=== PATIENT | female | born 2000 | race Caucasian/White ===

== ENCOUNTER 2023-11-19 13:17 | Outpatient (CLI) | payer OTHER, SELFPAY ==
[2023-11-19 14:14] LABS: Basophils Absolute Auto 0.1 K/mm3 (0.0-0.1); Eosinophils Absolute Auto 0.3 K/mm3 (0-0.3); Eosinophils Percent Auto 4.2 % (0-4.4); Hematocrit 42.6 % (37.0-47.0); Hemoglobin 13.7 g/dL (12.0-15.0); Immature Granulocyte Absolute 0.03 K/mm3 (0.00-0.031); Immature Granulocyte Percent A 0.4 % (0-0.5); Immature Reticulocyte Fraction 8.6 % (3.0-15.9); Lymphocytes Absolute Auto 1.82 K/mm3 (0.9-3.2); Mean Corpuscular HGB Conc 32.2 g/dl (32-36); Mean Corpuscular Hemoglobin 28.9 pg (26-34); Mean Corpuscular Volume 89.9 fl (80-100); Mean Platelet Volume 10.3 fl (7.4-10.4); Monocytes Absolute Auto 0.8 K/mm3 (0.1-0.6); Monocytes Percent Auto 11.1 % (2.6-8.5); Neutrophils Absolute Auto 3.8 K/mm3 (1.3-6.7); Neutrophils Percent Auto 56.3 % (45.5-73.1); Platelet Count Result 294 k/mm3 (150-375); Red Blood Count 4.74 M/mm3 (4.2-5.4); Red Cell Distribution Width 13.4 % (11.5-14.5); Reticulocyte Hemoglobin Conten 31.5 pg (28.2-36.6); Reticulocyte Percent 1.44 % (0.7-4.3); Reticulocytes Absolute 0.07 10^6/uL (0.02-0.10); White Blood Count 6.7 K/mm3 (4.5-10.0)
[2023-11-19 14:21] LABS: Iron 76 ug/dL (37-170)
[2023-11-19 14:22] LABS: Alanine Aminotransferase 13 U/L (6-35); Albumin Level 4.3 g/dL (3.5-5.1); Alkaline Phosphatase 80 U/L (38-126); Anion Gap 8 mmol/L (4-12); Aspartate Amino Transferase 33 U/L (14-36); Bilirubin,Total 0.2 mg/dL (0.2-1.3); Blood Urea Nitrogen 11 mg/dL (7-17); Calcium 9.4 mg/dL (8.4-10.2); Carbon Dioxide 29 mmol/L (22-30); Chloride 104 mmol/L (98-107); Estimated Glomerular Filt Rate > 60; Glucose 83 mg/dL (65-110); Potassium 3.9 mmol/L (3.4-5.0); Sodium 141 mmol/L (137-145)
[2023-11-19 14:30] LABS: Percent Iron Saturation 27 % (20-50)
== END 2023-11-19 13:18 | disposition home or self-care (01) ==
LOC: ANHGOSHLAB 13:22
DX: R53.83 Other fatigue (principal)
CPT/HCPCS: 36415; 80053; 82728; 83540; 83550; 85025; 85046

== ENCOUNTER 2024-07-19 19:37 | Emergency (ER) | payer OTHER, SELFPAY ==
--- NOTE | 2024-07-19 19:42 | ECG_ITS ---
Test Date: 2024-07-19 19:49:51 Measurements Intervals [place] Rate: 76 P: 19 ME: 159 QRS: 66 QRSD: 74 T: 12 QT: 355 QTc: 401 Interpretive Statements SINUS RHYTHM SEPTAL MYOCARDIAL INFARCTION [40+ ms Q WAVE IN V1/V2], PROBABLY OLD No previous ECG available for comparison Electronically Signed On 07-20-2024 15:18:38 CDT by Frederick Rivero M.D.
--- NOTE | 2024-07-19 19:47 | ED_ITS ---
HPI - Chest Pain General Chief Complaint: Chest Pain Stated Complaint: CHEST PAIN Time Seen by Provider: 07/19/24 19:47 Source: patient and RN notes reviewed Mode of arrival: ambulatory Limitations: no limitations History of Present Illness HPI narrative: 23-year-old female presents Express Care complaining of chest pain. Patient said it started approximate couple hours ago while at work. Patient has noticed she has developed sharp and stabbing pain that was midsternal and nonradiating. Patient also reports feeling dizzy during the episodes. Patient stated the pain would come and go and last about 2-3 minutes at a time. Patient denies any shortness of breath, jaw pain, syncope, nausea, vomiting, diaphoresis, leg swelling, or left arm pain. 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 Patient denies any family history of heart disease but states she has had family members of heart failure. Patient does not smoke. Patient has no cardiac history. Related Data Home Medications ?Medication ?Instructions ?Recorded ?Confirmed ?Last Taken ?Type aripiprazole 5 mg tablet mg 07/19/24 Unknown History metoprolol succinate 25 mg mg PO 07/19/24 Unknown History tablet,extended release 24 hr venlafaxine 150 mg mg PO 07/19/24 Unknown History capsule,extended release 24 hr Review of Systems Review of Systems: CONSTITUTIONAL: Denies fever, chills, or sweats. EYES: Denies visual changes, redness, or discharge. ENT: Denies rhinorrhea, congestion, sore throat, or otalgia. CARDIOVASCULAR: Positive for chest pain and dizziness. Negative for palpitations, chest pain with exertion, syncope, or edema. RESPIRATORY: Denies cough or dyspnea. GASTROINTESTINAL: Denies abdominal pain, nausea, vomiting, or diarrhea. GENITOURINARY: Denies dysuria or hematuria. SKIN: Denies rash or itching. MUSCULOSKELETAL: Denies back pain, joint pain, or myalgia. NEUROLOGIC: Denies headache, numbness, or weakness. PSYCHIATRIC: Denies anxiety or depression. All other systems reviewed are negative, except as documented in HPI. PMFSH Comments At the time of my signature, I reviewed and agree with the nursing past medical, surgical, social, and family history. There is no relevant family history pertinent to the patient complaint. Exam Narrative: GENERAL: This is a well-nourished, well-developed adult, in no apparent distress. They are non ill-appearing, nontoxic appearing. Flat affect. HEAD: normocephalic, atraumatic. EYES: Sclera clear/white. Conjunctiva normal. Vision is grossly intact. Extraocular movements intact. Pupils PERRLA. No nystagmus. EARS: External ears normal. Hearing grossly intact. NOSE: External nose normal THROAT: Mucous membranes moist NECK: Neck supple CARDIOVASCULAR: Regular rate and rhythm without murmurs, gallops, clicks, or rubs. Normal S1 and S2. RESPIRATORY: Clear to auscultation. Breath sounds equal bilaterally. No wheezes, rales, or rhonchi. Normal respiratory rate CHEST WALL: Tenderness to palpation to the left anterior chest wall. SKIN: warm, Dry, intact with no suspicious lesions or rash, good texture and turgor. NEURO: awake, alert, and oriented to person, place and time. There were no obvious focal neurologic abnormalities. EXTREMITIES: No joint tenderness, effusion, or edema noted. BACK: Nontender without deformity. Course Course Emergency Course: Portions of this record may have been created with voice recognition software Level of Care: Express Care Visit Vital Signs Vital signs: Vital Signs Temperature 97.8 F 07/19/24 19:50 Pulse Rate 81 07/19/24 19:50 Respiratory Rate 18 07/19/24 19:50 Blood Pressure 119/82 07/19/24 19:50 Pulse Oximetry 96 07/19/24 19:50 Temperature 97.8 F 07/19/24 19:50 Pulse Rate 81 07/19/24 19:50 Respiratory Rate 18 07/19/24 19:50 Blood Pressure 119/82 07/19/24 19:50 Pulse Oximetry 96 07/19/24 19:50 Reviewed MDM - Chest Pain MDM Narrative Medical decision making narrative: EKG sinus rhythm without ischemic findings. Non Specific T-wave abnormalities. Could be related from beta-padilla use. Patient's chest pain is reproducible and atypical in presentation. [place] heart score of 0. Low suspicion for ACS. Recommend close follow-up PCP or a referral to Cardiology given her family history of heart failure. Offered ER transfer further evaluation and management of patient's symptoms and she declined. Discussed physical exam findings. Advised supportive measures and signs/symptoms to go to the ER. Pt is appropriate for outpt treatment and f/u. Differential Diagnosis Differential diagnosis: Likely other (Atypical chest pain, chest pain, stable angina) ECG Data EKG #1: Attestation: I personally reviewed and interpreted this ECG as follows: ECG completion date: 07/19/24 ECG completion time: 19:49 Prior ECG tracings: not available for review EKG Interpretation: normal rate, no ectopy, normal QRS, NL axis and other (Nonspecific T-wave changes) Critical Care Time Critical Care Time Critical Care Time: No Discharge Plan Discharge Clinical Impression: Atypical chest pain Patient Disposition: Home Condition: Stable Instructions: Chest Pain (ED) Additional Instructions: Your EKG was negative for any signs of a heart attack. Please follow-up with your PCP in 3-5 days for further evaluation management. Consider seeing a fixing machine operator for further evaluation. If her chest pain changes he developed a pressure, pain that will go away, chest pain with exertion, shortness of breath, nausea, vomiting, extreme sweating, jaw pain, left arm pain, or any other concerns please go to the ER immediately. You May take Tylenol ibuprofen as needed for pain. Patient Language: [place] Prescriptions: No Action venlafaxine 150 mg capsule,extended release 24hr PO metoprolol succinate 25 mg tablet extended release 24 hr PO aripiprazole 5 mg tablet Follow-up/Referrals: ,Natalya [Other] Ruben Boyle DO [Physician] - Time of Disposition: 20:01
[2024-07-19 19:50] VITALS: BP 119/82; PULSE 81; RESP 18; TEMP 36.6; O2SAT 96
== END 2024-07-19 20:05 | disposition home or self-care (01) ==
DX: R07.89 Other chest pain (principal)
CPT/HCPCS: 93005; 99203; G0463